=== PATIENT | male | born 1990 | race African-American/Black ===

== ENCOUNTER 2025-06-27 20:32 | Emergency (ER) | payer OTHER ==
[~2025-06-27] VITALS: Ht 177.8 cm; Wt 50.0 kg
[2025-06-27 20:42] VITALS: TEMP 98.2
[2025-06-27 21:28] LABS: BASO # 0.1 10^3/uL (0.0-0.2); BASO % 0.7 % (0.0-1.0); EOS # 0.2 10^3/uL (0.0-0.5); EOS % 1.5 % (0.0-3.0); LYMPH # 2.4 10^3/uL (1.5-5.0); LYMPH % 22.0 % (24.0-44.0); MONO # 0.8 10^3/uL (0.0-0.8); MONO % 7.7 % (2.0-8.0); NEUTROPHILS # 7.3 10^3/uL (1.5-8.5); NEUTROPHILS % 67.9 % (36.0-66.0); PLATELET COUNT, AUTOMATED 326 10^3/uL (150-450)
[2025-06-27 21:47] LABS: CK-MB VALUE MASS < 1.0 NG/ML (<3.6)
[2025-06-27] MEDS: KETOROLAC 30 MG/ML 1 ML VIAL IV ONE (22:01)
[2025-06-27 22:12] LABS: CPK CREATINE PHOSPHOKINASE 159 U/L (46-171)
[2025-06-27 22:44] LABS: CK-MB VALUE MASS < 1.0 NG/ML (<3.6)
[2025-06-28 00:08] LABS: ETHYL ALCOHOL (ETHANOL) 0.020 % (0.000-0.010)
[2025-06-28 00:10] LABS: CALCIUM LEVEL 9.2 MG/DL (8.5-10.1); CARBON DIOXIDE LEVEL 27 MMOL/L (20-31); CHLORIDE LEVEL 104 MMOL/L (98-107); CREATININE FOR GFR 0.95 MG/DL (0.70-1.30); GLOMERULAR FILTRATION RATE > 90.0 (>60); POTASSIUM SERUM 3.9 MMOL/L (3.5-5.1); SODIUM LEVEL 142 MMOL/L (136-145)
[2025-06-28 00:13] LABS: CPK CREATINE PHOSPHOKINASE 166 U/L (46-171)
[2025-06-28 03:16] LABS: AMPHETAMINES LEVEL URINE NEGATIVE (NEGATIVE); BARBITURATES URINE NEGATIVE (NEGATIVE); CANNABINOIDS URINE NEGATIVE (NEGATIVE); COCAINE METABOLITE URINE NEGATIVE (NEGATIVE); METHADONE URINE NEGATIVE (NEGATIVE); OPIATES URINE NEGATIVE (NEGATIVE); PHENCYCLIDINE URINE NEGATIVE (NEGATIVE)
[2025-06-28 03:20] LABS: BENZODIAZEPINES URINE POSITIVE (NEGATIVE)
[2025-06-28] MEDS ORDERED: NAPR-837 PO (05:32)
[2025-06-28] MEDS ORDERED: METH-1164 PO (05:32)
[2025-06-28 06:00] VITALS: BP 109/67; O2SAT 99
== END 2025-06-28 06:05 | disposition home or self-care (01) ==
LOC: EDBD 20:32 → M ED 20:32
DX: R55 Syncope and collapse (principal); M54.50 Low back pain, unspecified
CPT/HCPCS: 70450; 71045; 72125; 72128; 72131; 80047; 80048; 80307; 82077; 82550; 82553; 83605; 84443; 84484; 85025; 93005; 93041; 94760; 96374; 96375; 99285; J1885; J3360